=== PATIENT | male | born 1925 | race Caucasian/White ===

== ENCOUNTER 2016-12-01 14:18 | Emergency (ER) | payer MEDICARE, BC ==
[2016-12-01] MEDS ORDERED: ACETAMINOPHEN 325 MG TABLET PO ONE (14:36)
--- NOTE | 2016-12-01 14:37 | ER Document Report ---
ED Medical Screen (RME) - General Stated Complaint: FALL/ HEAD LACERATION Mode of Arrival: Wheelchair Information source: Patient Notes: Patient fell down one step hitting the back of his head. Patient has a laceration to occipital scalp. states that patient just recently had a laceration in the same place and had em removed. hx: Pacemaker I have greeted and performed a rapid initial assessment of this patient. A comprehensive ED assessment and evaluation of the patient, analysis of test results and completion of the medical decision making process will be conducted by additional ED providers. TRAVEL OUTSIDE OF THE [place] IN LAST 30 DAYS: No - Related Data Allergies/Adverse Reactions: No Known Allergies Allergy (Verified 12/01/16 14:33) Physical Exam - Vital signs Vitals: Temp Pulse Resp BP Pulse Ox 98.5 F 75 16 132/83 H 93 12/01/16 14:32 12/01/16 14:32 12/01/16 14:32 12/01/16 14:32 12/01/16 14:32 - Skin Skin irregularity: Laceration - Occipital scalp laceration Course - Vital Signs Vital signs: Temp Pulse Resp BP Pulse Ox 98.5 F 75 16 132/83 H 93 12/01/16 14:32 12/01/16 14:32 12/01/16 14:32 12/01/16 14:32 12/01/16 14:32
[2016-12-01] MEDS ORDERED: LIDOCAINE 1%/EPINEPHRINE INJ 20 ML VIAL INJ ONE (17:28)
--- NOTE | 2016-12-01 17:28 | ER Document Report ---
ED General - General Chief Complaint: Head Injury without LOC Stated Complaint: FALL/ HEAD LACERATION Mode of Arrival: Wheelchair TRAVEL OUTSIDE OF THE [place] IN LAST 30 DAYS: No - HPI Patient complains to provider of: fall and laceration abrasions Notes: Patient coming in after a fall slipped and fell on some steps hitting his head. Patient is only on 81 mg of aspirin as far as blood thinning medication denies any loss of consciousness. Patient also has multiple abrasions with bleeding control. Denies any chest pain at all patient was of breath nausea vomiting prior to after patient denies syncopal event - Related Data Allergies/Adverse Reactions: No Known Allergies Allergy (Verified 12/01/16 14:33) Past Medical History - General Information source: Patient - Social History Smoking Status: Smoker,Current Status Unk Chew tobacco use (# tins/day): No Frequency of alcohol use: None Family History: None Patient has suicidal ideation: No Patient has homicidal ideation: No Renal/ Medical History: Denies: Hx Peritoneal Dialysis Review of Systems - Review of Systems Constitutional: No symptoms reported EENT: No symptoms reported Cardiovascular: No symptoms reported Respiratory: No symptoms reported Gastrointestinal: No symptoms reported Genitourinary: No symptoms reported Male Genitourinary: No symptoms reported Musculoskeletal: Other - Abrasions laceration Skin: No symptoms reported Hematologic/Lymphatic: No symptoms reported Neurological/Psychological: No symptoms reported -: Yes All other systems reviewed and negative Physical Exam - Vital signs Vitals: Temp Pulse Resp BP Pulse Ox 98.5 F 75 16 132/83 H 93 12/01/16 14:32 12/01/16 14:32 12/01/16 14:32 12/01/16 14:32 12/01/16 14:32 Interpretation: Normal - General General appearance: Appears well, Alert - HEENT Head: Normocephalic. No: Atraumatic - Patient with a 4 cm your laceration to the occipital region of his head Eyes: Normal Pupils: PERRL Neck: Normal - Respiratory Respiratory status: No respiratory distress Chest status: Nontender Breath sounds: Normal Chest palpation: Normal - Cardiovascular Rhythm: Regular Heart sounds: Normal auscultation Murmur: No - Abdominal Inspection: Normal Distension: No distension Bowel sounds: Normal Tenderness: Nontender Organomegaly: No organomegaly - Back Back: Normal, Nontender - Extremities General upper extremity: Normal inspection, Nontender, Normal color, Normal ROM , Normal temperature General lower extremity: Normal inspection, Nontender, Normal color, Normal ROM , Normal temperature, Normal weight bearing. No: Olivier's sign - Neurological Neuro grossly intact: Yes Cognition: Normal Orientation: AAOx4 [place] Coma Scale Eye Opening: Spontaneous [place] Coma Scale Verbal: Oriented [place] Coma Scale Motor: Obeys Commands [place] Coma Scale Total: 15 Speech: Normal Motor strength normal: LUE, RUE, LLE, RLE Sensory: Normal - Psychological Associated symptoms: Normal affect, Normal mood - Skin Skin Temperature: Warm Skin Moisture: Dry Skin Color: Normal Notes: Patient with an abrasion to the right scapular region patient with other skin tear at the right elbow and abrasion to the right hand bleeding controlled Course - Re-evaluation Re-evalutation: 12/01/16 19:45 Abrasions are cleaned and dressed. Wound was clean and dress with skinny placed in patient was encouraged follow-up with PCP no need for tetanus updates patient recently did have skinny and tetanus updated and outside facility. Patient is encouraged follow-up is PCP - Vital Signs Vital signs: Temp Pulse Resp BP Pulse Ox 98.0 F 78 16 135/82 H 97 12/01/16 18:31 12/01/16 18:31 12/01/16 14:32 12/01/16 18:31 12/01/16 18:31 Procedures - Laceration/Wound Repair Head Wound length (cm): 4 Wound's Depth, Shape: Linear Anesthetic type: 1% Lidocaine w/epi Volume Anesthetic (mLs): 2 Wound explored: Clean Irrigated w/ Saline (mLs): 500 Wound Repaired With: Skinny - 3 Number of Sutures: 3 Post-procedure wound care: Sterile dressing applied Post-procedure NV exam normal: Yes Complications: No Discharge - Discharge Clinical Impression: Skin tear, Abrasions of multiple sites Laceration of head Qualifiers: Encounter type: initial encounter Location of open wound of head: unspecified part of head Foreign body presence: without foreign body Qualified Code(s): S01.91XA - Laceration without foreign body of unspecified part of head, initial encounter Condition: Good Disposition: HOME, SELF-CARE Instructions: Antibiotic Ointment Protection ([facility]), Care of Stapled Wounds ([facility] ), Abrasions ([facility]), Skin Tear ([facility]) Additional Instructions: Please have your skinny removed and 5-7 days. Please check skin abrasions and tears daily he may apply antibiotic ointment Referrals: ARELY BECKWITH MD [Primary Care Provider] - Follow up as needed
[2016-12-01 18:33] VITALS: BP 135/82
== END 2016-12-01 18:33 | disposition home or self-care (01) ==
LOC: ER 14:18
PROC: 0HQ0XZZ Repair Scalp Skin, External Approach (ICD-10-PCS; principal; 2016-12-01)
DX: S01.91XA Laceration without foreign body of unspecified part of head, initial encounter (principal); S09.90XA Unspecified injury of head, initial encounter; F17.210 Nicotine dependence, cigarettes, uncomplicated
CPT/HCPCS: 99283; 70450; 12002; A9270; J3490